=== PATIENT | female | born 1950 | race Caucasian/White ===

== ENCOUNTER 2021-06-08 14:50 | Emergency (ER) | payer OTHER, MEDICARE ==
[2021-06-08 15:15] VITALS: BP 161/70; PULSE 82; TEMP 98.7; BMI 40.2
[2021-06-08] MEDS ORDERED: IBUPROFEN 400 MG TABLET (FP) PO ONE ×2 (16:41→16:56)
[2021-06-08] MEDS ORDERED: ACETAMINOPHEN 500 MG TABLET (FP) PO ONE (16:41)
[2021-06-08] MEDS ORDERED: ACETAMINOPHEN 500 MG TABLET (FP) ONE (16:56)
== END 2021-06-08 18:04 | disposition home or self-care (01) ==
LOC: FER 14:50
DX: M25.562 Pain in left knee (principal)
CPT/HCPCS: 73560-TC-LT-FY; 93971-TC; 99284-25